=== PATIENT | female | born 1965 | race Caucasian/White ===

== ENCOUNTER 2017-06-04 20:35 | Emergency (ER) | payer SELFPAY ==
[~2017-06-04] VITALS: Ht 162.6 cm; Wt 86.4 kg
[2017-06-04 20:37] VITALS: BP 146/70; TEMP 99.2
[2017-06-04] MEDS ORDERED: GLUCOPHAGE500 MG/TAB PO (20:55)
[2017-06-04] MEDS ORDERED: CELEXA 20MG20 MG/TAB PO (20:56)
[2017-06-04 21:59] VITALS: PULSE 76
== END 2017-06-04 22:00 | disposition home or self-care (01) ==
LOC: COL.ER 20:35
DX: R13.10 Dysphagia, unspecified (principal); E11.9 Type 2 diabetes mellitus without complications; F32.9 Major depressive disorder, single episode, unspecified; Z79.84 Long term (current) use of oral hypoglycemic drugs; Z90.49 Acquired absence of other specified parts of digestive tract; Z98.890 Other specified postprocedural states